=== PATIENT | male | born 1965 | race Caucasian/White ===

== ENCOUNTER 2019-03-12 05:17 | Inpatient (IN) | payer BC ==
[2019-03-12] VITALS (22 sets, daily range): BP systolic 95–148; BP diastolic 44–82; PULSE 83–100; RESP 17–26; Ht 188 cm; Wt 107.0 kg
[~2019-03-12] VITALS: Ht 188 cm; Wt 107.0 kg
[~2019-03-12 05:17] MED LIST: ALPR0.5T PO; AMLO-147 PO; CANA1TAB2 PO; EZET10TA19 PO; GABA300C16 PO; GLIM4TAB3 PO; IRBE150T21 PO; LANT3I SC; LOSA25TA12 PO; LYR75 PO; MTF1000T PO; TRAM50TA PO; TRAM50TA2 PO; ZOLP10TA PO; ZOLP10TA5 PO
[2019-03-12] MEDS ORDERED: LACTATED RINGER'S 1,000 ML IV SCH (06:00)
[2019-03-12] MEDS ORDERED: BUPIVACAINE 0.25%/EPI (MDV) 50 ML VIAL INJ ONE (06:44)
[2019-03-12] MEDS ORDERED: THROMBIN (BOVINE) 5,000 UNIT VIAL TP ONE (06:44)
[2019-03-12] MEDS ORDERED: POLYMYXIN/BACITRACIN 1L IRRIG ONE (06:45)
[2019-03-12] MEDS ORDERED: GELATIN SIZE 100 SPONGE ONE (06:45)
[2019-03-12] MEDS ORDERED: CARISOPRODOL 350 MG TAB PO PRN (07:00)
[2019-03-12] MEDS ORDERED: SUCCINYLCHOLINE CHLORIDE 100 MG/5 ML SYG IV ONE (07:03)
[2019-03-12] MEDS ORDERED: ROCURONIUM 50 MG INJ ONE ×2 (07:03→10:14)
[2019-03-12] MEDS ORDERED: MEPERIDINE 100 MG INJ ONE (07:03)
[2019-03-12] MEDS ORDERED: PROPOFOL 20 ML ONE (07:03)
[2019-03-12] MEDS ORDERED: GLYCOPYRROLATE 0.4 MG INJ ONE ×3 (07:03→08:39)
[2019-03-12] MEDS ORDERED: NEOSTIGMINE 3 MG/3 ML SYRINGE ONE ×2 (07:03→08:39)
[2019-03-12] MEDS ORDERED: LIDOCAINE 2% (SDV) 5 ML INJ ONE (07:03)
[2019-03-12] MEDS ORDERED: MIDAZOLAM 1 MG/ML 2 ML INJ ONE (07:08)
[2019-03-12] MEDS ORDERED: HEMOSTATIC MATRIX SYG ZFS ONE (08:08)
[2019-03-12] MEDS ORDERED: EPHEDrine 25 MG/5 ML SYG ONE (08:39)
[2019-03-12] MEDS ORDERED: ONDANSETRON 4 MG INJ ONE (08:57)
[2019-03-12] MEDS ORDERED: EPHEDrine 25 MG/5 ML SYG IV PRN (09:00)
[2019-03-12] MEDS ORDERED: CEPASTAT LOZENGE MT PRN (09:00)
[2019-03-12] MEDS ORDERED: BISACODYL 10 MG SUPP PR PRN (09:00)
[2019-03-12] MEDS ORDERED: MIDAZOLAM 1 MG/ML 2 ML INJ IV PRN (09:00)
[2019-03-12] MEDS ORDERED: DIPHENHYDRAMINE 50 MG INJ IV PRN ×2 (09:00)
[2019-03-12] MEDS ORDERED: LACTATED RINGER'S 1,000 ML IV ONE (09:00)
[2019-03-12] MEDS ORDERED: HYDROmorphONE 0.5 MG/0.5 ML SYG IV PRN (09:00)
[2019-03-12] MEDS ORDERED: METOCLOPRAMIDE 10 MG INJ IV PRN (09:00)
[2019-03-12] MEDS ORDERED: AL HYDROX/MG HYDROX/SIMETH 30 ML CUP PO PRN (09:00)
[2019-03-12] MEDS ORDERED: traMADol 50 MG TAB PO PRN ×2 (09:00)
[2019-03-12] MEDS ORDERED: FENTAnyl 50 MCG/ML VIAL IV PRN ×3 (09:00)
[2019-03-12] MEDS ORDERED: LABETALOL HCL 20MG INJ IV PRN (09:00)
[2019-03-12] MEDS ORDERED: MEPERIDINE 25 MG INJ IV PRN (09:00)
[2019-03-12] MEDS ORDERED: HYDROmorphONE 1 MG/5 ML IV SYRINGE IV PRN ×2 (09:00)
[2019-03-12] MEDS ORDERED: hydrALAzine 20 MG INJ IV PRN (09:00)
[2019-03-12] MEDS ORDERED: DIPHENHYDRAMINE 25 MG CAP PO PRN (09:00)
[2019-03-12] MEDS ORDERED: DOCUSATE SODIUM 100 MG CAP PO SCH (09:00)
[2019-03-12] MEDS ORDERED: ONDANSETRON 4 MG INJ IV PRN ×2 (09:00)
[2019-03-12] MEDS ORDERED: CEFAZOLIN 2 GM/50 ML (PMX) 50 ML IVPB SCH (09:00)
[2019-03-12] MEDS ORDERED: NALOXONE (0.4 MG/ML) INJ IV PRN (09:00)
[2019-03-12] MEDS ORDERED: 1/2 NS + KCL 20 MEQ 1,000 ML IV SCH (10:00)
[2019-03-12] MEDS ORDERED: ACETAMINOPHEN 325 MG TAB PO PRN (10:00)
[2019-03-12] MEDS ORDERED: CEFAZOLIN 1 GM INJ ONE (10:14)
[2019-03-12] MEDS: HYDROmorphONE 1 MG/5 ML IV SYRINGE IV PRN ×2 (10:25→10:37)
[2019-03-12] MEDS ORDERED: CEFAZOLIN 1 GM/50 ML (PMX) 50 ML IVPB SCH (12:00)
[2019-03-12] MEDS ORDERED: PREGABALIN 75 MG CAP PO SCH (13:00)
== END 2019-03-12 13:32 | disposition home or self-care (01) | DRG 473 ==
LOC: REC 05:17
PROVIDERS: ADMIT Specialist; ATTEND Specialist
PROC: 0RG20K0 Fusion of 2 or more Cervical Vertebral Joints with Nonautologous Tissue Substitute, Anterior Approach, Anterior Column, Open Approach (ICD-10-PCS; 2019-03-12)
PROC: 0RT30ZZ Resection of Cervical Vertebral Disc, Open Approach (ICD-10-PCS; 2019-03-12)
PROC: 0RP10AZ Removal of Interbody Fusion Device from Cervical Vertebral Joint, Open Approach (ICD-10-PCS; 2019-03-12)
PROC: 0RG20A0 Fusion of 2 or more Cervical Vertebral Joints with Interbody Fusion Device, Anterior Approach, Anterior Column, Open Approach (ICD-10-PCS; principal; 2019-03-12 07:00)
DX: M50.121 Cervical disc disorder at C4-C5 level with radiculopathy (principal); M48.02 Spinal stenosis, cervical region; Z98.1 Arthrodesis status
CPT/HCPCS: 72050; 82962; 88300; 88304; 97162; C1713; C1889; J0690; J1170; J2175; J2250; J2405; J2710; J3480